=== PATIENT | female | born 1960 ===

== ENCOUNTER 2018-02-21 01:54 | Outpatient (CLI) | payer SELFPAY | END 2018-02-21 23:59 | disposition home or self-care (01) | LOC: HW VAS 01:54 | DX: Z13.6 Encounter for screening for cardiovascular disorders (principal) ==

== ENCOUNTER 2018-04-04 03:38 | Outpatient (CLI) | payer SELFPAY ==
[2018-04-04 08:52] LABS: HEMOGLOBIN A1C 5.5 % (4.5-6.2)
== END 2018-04-04 23:59 | disposition home or self-care (01) ==
LOC: HW HEART 03:38
DX: Z13.6 Encounter for screening for cardiovascular disorders (principal)
CPT/HCPCS: 36415

== ENCOUNTER 2019-04-15 03:18 | Outpatient (CLI) | payer SELFPAY ==
[2019-04-15 09:00] LABS: HEMOGLOBIN A1C 5.5 % (4.5-6.2)
[2019-04-15 09:10] LABS: CHOL/HDL RATIO 3.33 (0.00-4.99)
== END 2019-04-15 23:59 | disposition home or self-care (01) ==
LOC: HW HEART 03:18
DX: Z13.6 Encounter for screening for cardiovascular disorders (principal)
CPT/HCPCS: 36415